=== PATIENT | male | born 1945 | race Caucasian/White ===

== ENCOUNTER → 2016-10-11 | Outpatient (CLI) | payer BC ==
[~2016-10-11] MED LIST: AMLO-114 PO; ATOR10TA88 PO; ATV/1 PO; BUSP-8 PO; LOSA1TAB38 PO; MIRT15TA2 PO; PROP10TA7 PO; RISP0.258 PO; RISP1TAB68 PO; TAMS0.4C38 PO
--- NOTE | 2016-10-14 15:46 | EEG Procedure Note ---
EEG Procedure Note Date of Service October 11, 2016. Start / End Times Start Time: 1:29pm End Time: 1:50pm Referring Physician Dr Lizandro Valentino History This is a 71 year old male with neurocognitive changes and seizure like activity. EEG for further evaluation of possible seizure etiology. Home medications: No AEDs. Remeron at night. Description This is a 21 electrode EEG with a single channel dedicated to limited EKG. The electrodes were placed in accordance with the International 10-20 system. At the start of the recording the patient was in an awake state. The background was well organized and composed of symmetric mixed alpha and beta frequencies. There was a well formed symmetric moderate amplitude posterior dominant rhythm of 9-10Hz that was reactive to eye opening and closure. Hyperventilation was not done. Photic stimulation at various frequencies produced no abnormalities. There was no state changes or sleep transients. Interpretation This is a normal awake only routine EEG There was no electrographic seizures or epileptiform discharges. Clinical Correlation A normal EEG does not rule out epilepsy if there is a strong clinical suspicion.
== END | disposition home or self-care (01) ==
LOC: C.NEUR 13:09 → MERGE 13:09
PROVIDERS: ATTEND Psychiatry & Neurology Neurology
DX: R56.9 Unspecified convulsions (principal)

== ENCOUNTER → 2016-10-11 | Outpatient (CLI) | payer BC ==
[~2016-10-11] MED LIST changes: +ATOR10TA82 PO; -ATOR10TA88 PO; +GADAVIST IV PRN
--- NOTE | 2016-10-11 12:52 | DIAGNOSTIC IMAGING REPORT ---
MRI OF THE BRAIN WITHOUT AND WITH IV CONTRAST SEIZURE PROTOCOL CLINICAL HISTORY: F07.89 Cognitive and neurobehavioral [id number] COMPARISON STUDY: No previous studies for comparison. TECHNIQUE: Utilizing a 1.5 Belkis magnet and dedicated coil, multiplanar, multiecho imaging of the brain was performed pre and postcontrast administration. IV administration of 8 mL of Gadavist contrast was uneventful. Thin cut coronal T2 imaging was performed according to seizure protocol. FINDINGS: Age-related atrophy and chronic small vessel change. Ventricular system is midline. Internal artery canals are symmetric. No significant postcontrast enhancement. IMPRESSION: Age-related atrophy and chronic small vessel change. No acute process. Electronically signed by: Santana Murdock M.D. 10/11/2016 12:50 PM Dictated Date/Time: 10/11/2016 12:48 PM
== END | disposition home or self-care (01) ==
LOC: C.MRIBC 11:07 → MERGE 11:07
PROVIDERS: ATTEND Psychiatry & Neurology Neurology
DX: F07.89 Other personality and behavioral disorders due to known physiological condition (principal); R56.9 Unspecified convulsions

== ENCOUNTER 2016-11-08 07:25 | Day surgery (SDC) | payer BC ==
[2016-11-08] VITALS (10 sets, daily range): BP systolic 119–152; BP diastolic 67–87; PULSE 53–94; TEMP 36.5–36.9; O2SAT 94–99; Ht 175.3 cm; Wt 80.0 kg
[~2016-11-08] VITALS: Ht 175.3 cm; Wt 80.0 kg
[2016-11-08] MEDS ORDERED: RISP1TAB68 PO (09:00)
[2016-11-08] MEDS ORDERED: MIRT15TA2 PO (09:00)
[2016-11-08] MEDS ORDERED: LOSA1TAB38 PO (09:00)
[2016-11-08] MEDS ORDERED: TAMS0.4C38 PO (09:00)
[2016-11-08] MEDS ORDERED: PROP10TA7 PO (09:00)
[2016-11-08] MEDS ORDERED: ATV/1 PO (09:00)
[2016-11-08] MEDS ORDERED: AMLO-114 PO (09:00)
[2016-11-08] MEDS ORDERED: ATOR10TA82 PO (09:00)
[2016-11-08] MEDS ORDERED: RISP0.258 PO (09:00)
[2016-11-08] MEDS ORDERED: BUSP-8 PO (09:00)
--- NOTE | 2016-11-08 09:57 | Discharge Instructions ---
Discharge Instructions Procedure Procedure Date: Nov 08, 2016. Reason for visit: Abnormal Brain Mri/Amilcar & Neuro Dysfunction/[place]. Discharge Discharge Date: Nov 08, 2016. Discharge Diagnosis: Cognitive dysfunction Instructions Activity Recommendations: 1 Day-May resume regular activity, 48 Hours of decreased exertion, 1 Day with no exercise/sex/sports, 1 Day with no driving/ machine use Return to School/Work: limitations (light activity x 48 hours) Recommended Home Diet: Resume Previous Diet Provider Instructions: Fluoroscopic guided lumbar puncture is performed at the L4-L5 interlaminar space. Approximately 10 cc of clear, colorless CSF was removed and sent for laboratory analysis. Opening pressures measured 11 cm of water. The procedure was well tolerated and without immediate complication. Allergies Uncoded Allergies: SULFA (Allergy, Mild, Rash, 11/08/16) Juan Nicholas Recommendations: Call your doctor if: * Temperature above 101 degrees * Pain not relieved by pain medicine ordered * There is increased drainage or redness from any incision * You have any unanswered questions or concerns. Your Doctors Instructions noted above were prepared by provider Nicola Bright. Patient Signature Section: Patient Instructions Signature Page Jeffery Muñiz Patient (or Guardian) Signature/Date: I have read and understand the instructions given to me by my caregivers. Caregiver/RN/Doctor Signature/Date: The above-named patient and/or guardian has received patient instructions on this date. + Original Patient Signature Page (only) stays with chart. Please make copy for patient.
[2016-11-08] MEDS ORDERED: ACETAMINOPHEN 500 MG TAB PO PRN (10:00)
--- NOTE | 2016-11-08 10:00 | DIAGNOSTIC IMAGING REPORT ---
FLUOROSCOPIC GUIDED LUMBAR PUNCTURE CLINICAL HISTORY: Mental status change. Cognitive dysfunction. PROCEDURE: The risks, benefits, and alternatives to the procedure is discussed with the patient who voiced understanding. Written informed consent was obtained. The patient was placed prone on the fluoroscopy table. The lower back was prepped and draped in the usual sterile fashion. 1% lidocaine was used for local anesthesia. A 22-gauge spinal needle was inserted into the L4-L5 interlaminar space, opening pressures were assessed, and approximately 10 cc of clear colorless cerebrospinal fluid was removed. The patient tolerated the procedure well. There were no immediate complications. The patient was then transported to the medical treatment unit for further observation. Fluoroscopy time: 0.2 minutes Opening pressures: 11 cm of water IMPRESSION: Fluoroscopic guided lumbar puncture with removal of approximately 10 cc of cerebrospinal fluid. There were no immediate complications. Electronically signed by: Nicola Bright M.D. 11/08/2016 9:59 AM Dictated Date/Time: 11/08/2016 9:58 AM
[2016-11-08 10:35] LABS: CSF TOTAL PROTEIN 43.6 mg/dl (15.0-45.0)
[2016-11-08 10:38] LABS: CSF APPEARANCE CLEAR; CSF COLOR COLORLESS; CSF XANTHOCHROMIC NO XANTHOCHROMIA
[2016-11-13 08:36] LABS: ALBUMIN 4.7 g/dL (3.2-4.6); IGG CSF 2.7 mg/dL (0.8-7.7); IGG SERUM 1050 mg/dL (694-1618); LYME DNA PCR CSF OR SYNOVIAL Not detected (Not Detected); LYME DNA SOURCE CSF; LYME IGG BAND PATTERN CSF 18kD; LYME IGM CSF NO BANDS DETECTED; MYELIN BASIC PROTEIN 663 <2.0 mcg/L (0.0-4.0)
== END 2016-11-08 14:02 | disposition home or self-care (01) ==
LOC: C.ACU 07:25 → MERGE 07:25 → C.ACU 14:02
PROVIDERS: ATTEND Psychiatry & Neurology Neurology
DX: R90.89 Other abnormal findings on diagnostic imaging of central nervous system (principal); F09 Unspecified mental disorder due to known physiological condition; A69.20 Lyme disease, unspecified; F07.89 Other personality and behavioral disorders due to known physiological condition